=== PATIENT | male | born 1960 | race Caucasian/White ===

== ENCOUNTER → 2017-04-09 | Outpatient (CLI) | payer OTHER ==
--- NOTE | ~2017-04-09 | EKG ---
[address] [address] ELECTROCARDIOGRAM REPORT Name: EUGENIOERYN JHAVERI Room #: REG [facility]#: [id number] Admission: 04/09/17 Attend Phys: Zaki Campos MD Discharge: Date of : 60 Report #: [id number] THIS REPORT FOR: //name// [facility] Test Date: 2017-04-09 Test Time: 11:21:51 Pat Name: ERYN STRANGE Department: Room: Gender: Ware Server: Thania ZAMBRANO : 1960 Requested By: Zaki Campos Order Number: [id number] MD: Theron Dubon Measurements Intervals [place] Rate: 78 P: 53 AR: 135 QRS: 4 QRSD: 86 T: 40 QT: 367 QTc: 419 Interpretive Statements Sinus rhythm No previous ECG available for comparison Electronically Signed On 04-09-2017 11:25:32 CDT by Theron Dubon [email or web address] <ELECTRONICALLY SIGNED> By: Theron Dubon MD 04/09/17 1125 [id number] Theron Dubon MD /JULIANNA
== END ==
LOC: CV 10:47
DX: Z01.810 Encounter for preprocedural cardiovascular examination (principal)